=== PATIENT | male | born 1990 | race Hispanic/Latino ===

== ENCOUNTER 2019-09-13 16:35 | Emergency (ER) | payer BC, SELFPAY ==
[2019-09-13] MEDS ORDERED: Adacel (T-DAP) 0.5 ML SYRINGE ONE (17:17)
== END 2019-09-13 17:24 | disposition home or self-care (01) ==
LOC: ERS 16:35
DX: T21.11XA Burn of first degree of chest wall, initial encounter (principal); X11.8XXA Contact with other hot tap-water, initial encounter
CPT/HCPCS: 90471; 90715

== ENCOUNTER 2020-11-11 13:34 | Outpatient (CLI) | payer OTHER | END 2020-11-11 13:35 | disposition home or self-care (01) | LOC: BICCT 13:34 | PROVIDERS: ATTEND Neurological Surgery | DX: M54.5 Low back pain (principal); M54.6 Pain in thoracic spine; M51.9 Unspecified thoracic, thoracolumbar and lumbosacral intervertebral disc disorder; M48.04 Spinal stenosis, thoracic region; M51.24 Other intervertebral disc displacement, thoracic region | CPT/HCPCS: 72128; 72131 ==